=== PATIENT | female | born 1985 | race Two or more races ===

== ENCOUNTER 2017-07-09 14:40 | Emergency (ER) | payer SELFPAY ==
[2017-07-09] MEDS ORDERED: ACETAMINOPHEN 325 MG TABLET PO ONE (15:46)
[2017-07-09] MEDS ORDERED: NORMAL SALINE 1000 ML 1,000 ML IV PRN (15:46)
--- NOTE | 2017-07-09 15:48 | ER Document Report ---
ED Medical Screen (RME) - General Chief Complaint: Lower Abdominal Pain Stated Complaint: ABDOMINAL PAIN Time Seen by Provider: 07/09/17 15:44 Notes: Patient states since yesterday she has had left lower quadrant pain that radiates to her left flank. She also had fevers nausea and decreased appetite. She has been vomiting. She has not had any diarrhea or problems with urination. She denies any chronic medical conditions or previous surgeries. TRAVEL OUTSIDE OF THE [place] IN LAST 30 DAYS: No - Related Data Allergies/Adverse Reactions: No Known Allergies Allergy (Verified 07/09/17 15:05) Past Medical History - Social History Chew tobacco use (# tins/day): No Frequency of alcohol use: Social Drug Abuse: None Renal/ Medical History: Denies: Hx Peritoneal Dialysis Surgical Hx: Negative - Immunizations Hx Diphtheria, Pertussis, Tetanus Vaccination: No - unsure Physical Exam - Vital signs Vitals: Temp Pulse Resp BP Pulse Ox 101.9 F H 109 H 16 111/68 96 07/09/17 15:06 07/09/17 15:06 07/09/17 15:06 07/09/17 15:06 07/09/17 15:06 Course - Vital Signs Vital signs: Temp Pulse Resp BP Pulse Ox 101.9 F H 109 H 16 111/68 96 07/09/17 15:06 07/09/17 15:06 07/09/17 15:06 07/09/17 15:06 07/09/17 15:06
[2017-07-09 17:21] LABS: APPEARANCE,URINE CLOUDY; BILIRUBIN,URINE NEGATIVE (NEGATIVE); GLUCOSE, URINE NEGATIVE (NEGATIVE); KETONES,URINE NEGATIVE (NEGATIVE); LEUKOCYTE ESTERASE,URINE LARGE (NEGATIVE); NITRITE,URINE POSITIVE (NEGATIVE); PROTEIN,URINE 100 mg/dL (NEGATIVE); URINE SPECIFIC GRAVITY 1.006; UROBILINOGEN,URINE NEGATIVE mg/dL (<2.0)
[2017-07-09 17:32] LABS: ABSOLUTE LYMPHOCYTES (AUTO) 0.7 10^3/uL (0.5-4.7); ABSOLUTE NEUT (AUTO) 11.6 10^3/uL (1.7-8.2); BASOPHILS % (AUTO) 0.3 % (0-2); HEMOGLOBIN 13.9 g/dL (12.0-15.5); HGB HCT DIFFERENCE 0.7; LYMPHOCYTES % (AUTO) 5.6 % (13-45); MEAN CORPUSCULAR HEMOGLOBIN 29.8 pg (27.0-33.4); MEAN CORPUSCULAR HGB CONC 33.8 g/dL (32.0-36.0); MEAN CORPUSCULAR VOLUME 88 fl (80-97); MONOCYTES % (AUTO) 7.6 % (3-13); RED BLOOD COUNT 4.65 10^6/uL (3.72-5.28); RED CELL DISTRIBUTION WIDTH 13.8 % (11.5-14.0); SEGMENTED NEUTROPHILS % (AUTO) 86.5 % (42-78); WHITE BLOOD COUNT 13.4 10^3/uL (4.0-10.5)
[2017-07-09 17:45] LABS: ALANINE AMINOTRANSFERASE 97 U/L (9-52); ALBUMIN 4.6 g/dL (3.5-5.0); ALKALINE PHOSPHATASE 109 U/L (38-126); ANION GAP 13 (5-19); ASPARTATE AMINO TRANSFERASE 71 U/L (14-36); BILIRUBIN,DIRECT 0.5 mg/dL (0.0-0.4); BILIRUBIN,TOTAL 1.1 mg/dL (0.2-1.3); BLOOD UREA NITROGEN 8 mg/dL (7-20); CALCIUM 9.9 mg/dL (8.4-10.2); CARBON DIOXIDE 25 mmol/L (22-30); CHLORIDE 100 mmol/L (98-107); CREATININE RESULT 0.66 mg/dL (0.52-1.25); GLUCOSE 107 mg/dL (75-110); POTASSIUM 4.1 mmol/L (3.6-5.0); SODIUM 137.9 mmol/L (137-145)
[2017-07-09] MEDS ORDERED: CEFTRIAXONE INJ 1000 MG VIAL IV ONE (18:07)
[2017-07-09] MEDS ORDERED: KETOROLAC TROMETHAMINE INJ/PF 30 MG/1 ML SDV IV ONE (18:12)
[2017-07-09] MEDS ORDERED: CEFTRIAXONE 1 GM/D5W RTU 1 GM/50 ML RTUPB IV ONE (18:42)
[2017-07-09] MEDS ORDERED: CEFTRIAXONE 2 GM/D5W RTU 2 GM/50 ML RTUPB IV SCH (19:00)
--- NOTE | 2017-07-09 19:58 | ER Document Report ---
ED General - General Chief Complaint: Lower Abdominal Pain Stated Complaint: ABDOMINAL PAIN Time Seen by Provider: 07/09/17 15:44 Notes: Patient complains of 1 day of left flank pain. It does radiate into the left lower abdomen. It is been constant and severe. Nothing makes it better or worse. It is a sharp pain. She denies any pain with intercourse. No vaginal discharge or bleeding. She states she has had some fevers and nausea. No vomiting. Some loose stool. She does not have any pain with urination. TRAVEL OUTSIDE OF THE [place] IN LAST 30 DAYS: No - Related Data Allergies/Adverse Reactions: No Known Allergies Allergy (Verified 07/09/17 15:05) Past Medical History - General Information source: Patient - Social History Smoking Status: Current Some Day Smoker Chew tobacco use (# tins/day): No Frequency of alcohol use: Social Drug Abuse: None Family History: Reviewed & Not Pertinent Patient has suicidal ideation: No Patient has homicidal ideation: No Renal/ Medical History: Denies: Hx Peritoneal Dialysis Surgical Hx: Negative - Immunizations Hx Diphtheria, Pertussis, Tetanus Vaccination: No - unsure Review of Systems - Review of Systems Constitutional: Chills, Fever, Malaise Gastrointestinal: Abdominal pain, Diarrhea. denies: Vomiting Genitourinary: denies: Burning, Dysuria -: Yes All other systems reviewed and negative Physical Exam - Vital signs Vitals: Temp Pulse Resp BP Pulse Ox 101.9 F H 109 H 16 111/68 96 07/09/17 15:06 07/09/17 15:06 07/09/17 15:06 07/09/17 15:06 07/09/17 15:06 Interpretation: Tachycardic, Febrile - General General appearance: Appears well, Alert - HEENT Head: Normocephalic, Atraumatic Eyes: Normal Pupils: PERRL - Respiratory Respiratory status: No respiratory distress Chest status: Nontender Breath sounds: Normal Chest palpation: Normal - Cardiovascular Rhythm: Regular Heart sounds: Normal auscultation Murmur: No - Abdominal Inspection: Normal Distension: No distension Bowel sounds: Normal Tenderness: Tender - llq Organomegaly: No organomegaly - Back Back: Normal, Tender - Left CVA tenderness to percussion - Extremities General upper extremity: Normal inspection, Nontender, Normal color, Normal ROM , Normal temperature General lower extremity: Normal inspection, Nontender, Normal color, Normal ROM , Normal temperature, Normal weight bearing. No: Yvan's sign - Neurological Neuro grossly intact: Yes Cognition: Normal Orientation: AAOx4 Dereje Coma Scale Eye Opening: Spontaneous [place] Coma Scale Verbal: Oriented [place] Coma Scale Motor: Obeys Commands [place] Coma Scale Total: 15 Speech: Normal Motor strength normal: LUE, RUE, LLE, RLE Sensory: Normal - Psychological Associated symptoms: Normal affect, Normal mood - Skin Skin Temperature: Warm Skin Moisture: Dry Skin Color: Normal Course - Re-evaluation Re-evalutation: 07/09/17 19:54 Patient feels better after fluids and antibiotics. - Vital Signs Vital signs: Temp Pulse Resp BP Pulse Ox 101.9 F H 109 H 16 111/68 96 07/09/17 15:06 07/09/17 15:06 07/09/17 15:06 07/09/17 15:06 07/09/17 15:06 - Laboratory Result Diagrams: 07/09/17 17:11 07/09/17 17:11 Laboratory results interpreted by me: 07/09/17 07/09/17 07/09/17 15:08 17:11 17:11 WBC 13.4 H Seg Neutrophils % 86.5 H Lymphocytes % 5.6 L Absolute Neutrophils 11.6 H Direct Bilirubin 0.5 H AST 71 H ALT 97 H Urine Protein 100 H Urine Blood MODERATE H Urine Nitrite POSITIVE H Ur Leukocyte Esterase LARGE H Discharge - Discharge Clinical Impression: Acute pyelonephritis Condition: Stable Disposition: HOME, SELF-CARE Instructions: Oral Narcotic Medication ([facility]), Pyelonephritis ([facility]), Toradol Injection ([facility]), Antibiotic Therapy ([facility]), Antinausea Medication ([facility]) Additional Instructions: Please call your primary care physician as soon as possible to arrange for follow-up. Prescriptions: Amox Tr/Potassium Clavulanate [Augmentin 875-125 Tablet] 1 tab PO BID 10 Days # 20 tablet Hydrocodone/Acetaminophen [[place] 5-325 mg Tablet] 1 tab PO QID #10 tablet Ondansetron [Zofran Odt 4 mg Tablet] 1 - 2 tab PO Q4H PRN #15 tab.rapdis PRN Reason: For Nausea/Vomiting Forms: Return to Work
[2017-07-09 20:37] VITALS: BP 108/57
== END 2017-07-09 20:12 | disposition home or self-care (01) ==
LOC: ER 14:40
DX: N10 Acute pyelonephritis (principal); R19.7 Diarrhea, unspecified; R50.9 Fever, unspecified; R11.0 Nausea; R53.81 Other malaise; F17.200 Nicotine dependence, unspecified, uncomplicated
CPT/HCPCS: 99284; 96361; 96375; 96365; 36415; 85025; 81025; 80053; 81001; J1885; J7030; J0696